=== PATIENT | male | born 1970 | race Caucasian/White ===

== ENCOUNTER → 2018-10-02 | Outpatient (CLI) | payer BC ==
--- NOTE | 2018-10-02 13:13 | RAD ---
FOOT LEFT 2V History: Left foot pain Comparison: None. Findings: 2 views left foot are submitted. There are dorsal and plantar calcaneal enthesophytes. There is some lucency through sesamoid bone at the plantar aspect of the distal first metatarsal. Exact site of pain is not indicated. Otherwise no acute fracture is identified. No aggressive bone destruction is identified. Impression: 1. There is central lucency of a sesamoid bone at the plantar aspect of the distal first metatarsal of uncertain chronicity, if pain referable to this location could be due to more recent fracture. 2. There are dorsal and plantar calcaneal enthesophytes. Electronically signed by: Jay Feng MD (10/02/2018 1:10 PM) [id number]
== END | disposition home or self-care (01) ==
LOC: PMG 11:47
PROVIDERS: ATTEND Physician Assistant
DX: M77.32 Calcaneal spur, left foot (principal)
CPT/HCPCS: 73620

== ENCOUNTER → 2020-11-03 | Outpatient (CLI) | payer BC ==
[~2020-11-03] MED LIST: REGADENOSON 0.4 MG/5 ML DISP.SYRIN. IV ONE
--- NOTE | 2020-11-03 15:31 | RAD ---
MR#: [id number] Date of Study: 11/03/2020 Ordering Physician: STACEY GRANT, Referring Physician: LANA ENAMORADO Tech: RT Hernandez (R) (N) APPROVED REPORT Test Type: Pharmacological Stress Nurse/Tech: Almas/Jerrod Test Indications: CP Cardiac History: No known cardiac Medications: See EHR Medical History: See Electronic Medical Record Resting Heart Rate: 76 bpm Resting Blood Pressure: 167/95mmHg Pretest Chest Pain: No chest pain Pharm. Details Pharmacologic stress testing was performed using 0.4mg per 5ml of regadenoson given intravenously ove r 7-10 seconds. Stress Symptoms Slight chest tightness & headach POST EXERCISE Reason for Termination: Infusion complete Max HR: 99 bpm Max Blood Pressure: 162/82mmHg Blood Pressure response to exercise: Normal blood pressure response during stress. Heart Rate response to exercise: Normal Chest Pain: Yes. Arrhythmia: No. ST Change: No. INTERPRETATION Stress EKG Conclusion: The resting EKG shows a sinus rhythm and mild nonspecific ST wave changes. The stress EKG shows mild further nonspecific ST T wave changes that are mildly suggestive but not di agnostic of ischemia. Imaging Protocol IMAGE PROTOCOL: Rest Tc-99m/stress Tc-99m 1 day Rest: Stress: Viability: Radiopharm.Tc99m AukhpnvtbIb28q Sestamibi Mini18rVl 33mCi Duration 15min. 15min. Img Date 11/03/2020 11/03/2020 Inj-Img [id number]. 90min. Rest Admin Site:IV - Left HandAdministrator: RT Hernandez (R)(N) Stress Admin Site: IV - Left HandAdministrator: RT Hernandez (Paola)(N) STRESS DATA End Diast. Vol.107.0mlAv. Heart Rate88.0bpm End Syst. Vol.23.0mlCO Index BSA0.0L/min Myocardial Fxzh699.0gEject. Eduverde58.0% Stress Rates Pk. Fill Rate2.91EDV/secLVtime Pk. Fill 147.65msec Pk. Empty Rate4.51ESV/secLVtime Pk. Syvgk540.75msec 1/3 Pk. Fill1.34EDV/sec Stress Scores Regional WT0.00Summed WT0.00 Regional WM0.00Summed WM1.00 LV Perfusion The stress scans show no significant defects. The rest scans showed no significant defects. Nuclear imaging shows no reversible ischemia or infarct. Wall Motion Left ventricular systolic function is normal with no regional wall motion abnormalities and an ejecti on fraction of greater than 70%. LV Perf. Quant 17 Seg. SSS0.00 17 Seg. SRS2.00 17 Seg. SDS0.00 Stress Defect Extent (% LAD)0.00Rest Defect Extent (% LAD)0.00Rev. Defect Extent (% LAD)0.00 Stress Defect Extent (% LCX) 7.50Rest Defect Extent (% LCX)0.00Rev. Defect Extent (% LCX)0.00 Stress Defect Extent (% RCA)0.00Rest Defect Extent (% RCA)0.00Rev. Defect Extent (% RCA)0.00 Stress Defect Extent (% GLADYS)1.30Rest Defect Extent (% GLADYS)0.00Rev. Defect Extent (% GLADYS)0.[address] Conclusion [address] Mild nonspecific ST-T wave changes at rest and with exertion that are not diagnostic of ischemia. 2. Nuclear imaging shows no reversible ischemia or infarct. 3. Normal left ventricular systolic function with no regional wall motion abnormalities and an ejecti on fraction of greater than 70%. 4. Moderately low to low risk Lexiscan nuclear stress test. Signed by : Paco Lundberg MD Electronically Approved : 11/03/2020 15:31:17
== END ==
LOC: NM 08:16
PROVIDERS: ATTEND Internal Medicine Cardiovascular Disease
DX: R07.9 Chest pain, unspecified (principal)
CPT/HCPCS: 78452; 93017; A9500; J2785